=== PATIENT | female | born 1995 | race Hispanic/Latino ===

== ENCOUNTER 2024-07-06 19:42 | Emergency (ER) | payer SELFPAY ==
[2024-07-06 20:20] VITALS: BP 147/102; PULSE 118; RESP 20; TEMP 37.3; O2SAT 100
--- NOTE | 2024-07-06 23:32 | ED_ITS ---
HPI - Ear Problem General Chief complaint: Ear Stated complaint: ear pain x3days Time Seen by Provider: 07/06/24 22:50 Patient is a 29-year-old female who presents to the ER with complaints of right ear pain that started 4 days ago. She is tearful at the time of examination due to pain. Patient denies any discharge from the R ear. She denies any medical history relevant to this ER visit. Patient denies chest pain, shortness a breath, neck stiffness, back pain, sore throat. Related Data Allergies Allergy/AdvReac Type Severity Reaction Status Date / Time No Known Allergies Allergy Verified 07/06/24 23:40 Review of Systems Review of Systems: All systems reviewed & are unremarkable except as noted in HPI and below Exam Narrative: GENERAL: Well appearing, well-nourished, non-toxic, in no acute distress. HEAD: Normocephalic, atraumatic. L ear clear tympanic membrane, no signs of infection. R ear reddened, purulent drainage behind tympanic membrane. NECK: Supple. No adenopathy, no masses. RESPIRATORY: Airway patent, respirations nonlabored. Clear to auscultation bilaterally, no rales, rhonchi, wheezing. CARDIOVASCULAR: Regular rate and rhythm without murmurs, rubs, or gallops. Peripheral pulses 2+ and equal bilaterally. ABDOMINAL: Soft, nontender, nondistended, no hepatosplenomegaly. Normoactive BS. MUSCULOSKELETAL: Moves all extremities. Strength/ROM intact without gross deformities. SKIN: Warm, dry, normal color. No rashes. NEURO: A&O X3. Speech clear. Cranial nerves II-XII grossly intact. Steady gait. No ataxic movements. PSYCHIATRIC: Appropriate mood and affect. Normal interaction. Course Vital Signs Vital signs: Vital Signs Temperature 37.3 C 07/06/24 20:20 Pulse Rate 118 H 07/06/24 20:20 Respiratory Rate 20 07/06/24 20:20 Blood Pressure 147/102 H 07/06/24 20:20 Pulse Oximetry 100 07/06/24 20:20 Oxygen Delivery Room Air 07/06/24 20:20 Temperature 37.3 C 07/06/24 20:20 Pulse Rate 118 H 07/06/24 20:20 Respiratory Rate 20 07/06/24 20:20 Blood Pressure 147/102 H 07/06/24 20:20 Pulse Oximetry 100 07/06/24 20:20 Oxygen Delivery Room Air 07/06/24 20:20 Medical Decision Making MDM Narrative Medical decision making narrative: Patient is a 29-year-old female who presents to the ER with complaints of right ear pain that started 4 days ago. She is tearful at the time of examination due to pain. Patient denies any discharge from the R ear. She d enies any medical history relevant to this ER visit. Patient denies chest pain, shortness a breath, neck stiffness, back pain, sore throat. Labs Ordered: None necessary Imaging Ordered: None necessary Medications Ordered: Toradol IM, [place] p.o., Augmentin p.o. Diagnosis: Right acute otitis media Patient Education/Shared MDM: Results of examination shared with patient. She endorses improvement following medication administration. Patient strongly advised to maintain hydration status upon discharge and follow-up with a PCP. She will be discharged home with prescription for Augmentin and Tylenol. Strict return precautions provided. Patient verbalized understanding is in agreement with plan. Vital signs stable at time of discharge. All questions answered. Differential Diagnosis Differential Diagnosis: Right acute otitis media, right external otitis, fluid behind right ear Vital Signs Vital Signs: Vital Signs Temperature 37.3 C 07/06/24 20:20 Pulse Rate 118 H 07/06/24 20:20 Respiratory Rate 20 07/06/24 20:20 Blood Pressure 147/102 H 07/06/24 20:20 Pulse Oximetry 100 07/06/24 20:20 Oxygen Delivery Room Air 07/06/24 20:20 Temperature 37.3 C 07/06/24 20:20 Pulse Rate 118 H 07/06/24 20:20 Respiratory Rate 20 07/06/24 20:20 Blood Pressure 147/102 H 07/06/24 20:20 Pulse Oximetry 100 07/06/24 20:20 Oxygen Delivery Room Air 07/06/24 20:20 Discharge Plan Discharge Clinical Impression: Otitis media Patient Disposition: Home, Self-Care Condition: Stable Instructions: Antibiotic Form, Ear Infection (ED) Additional Instructions: Please return to the ER with an worsening symptoms. Follow-up with a primary care provider as soon as possible. Take all medications as prescribed. Complete your whole dose of antibiotics. Patient Language: [place]ij[place] Prescriptions: New amoxicillin-pot clavulanate 875-125 mg tablet 1 tablet PO Q12H 7 Days Qty: 20 0RF Follow-up/Referrals: PHYSICIAN NOT ON STAFF,NONSTAFF [Primary Care Provider] -
[2024-07-06] MEDS: KETOROLAC (*BKC) 60 MG/2 ML VIAL IM (23:43)
[2024-07-06] MEDS: AMOXICILLIN/CLAVULANATE K 875-125 MG TAB 1 TABLET PO (23:43)
[2024-07-06] MEDS: HYDROcodone/acetaminophen (*CRX) 5-325 MG TABLET 1 TAB PO (23:44)
[2024-07-07 00:59] VITALS: BP 152/91; PULSE 97; RESP 14; O2SAT 99
== END 2024-07-07 01:00 | disposition home or self-care (01) ==
PROVIDERS: Emergency Provider Registered Nurse
DX: H66.91 Otitis media, unspecified, right ear (principal)
CPT/HCPCS: 96372; 99283; A9270; J1885